=== PATIENT | female | born 1950 | race Hispanic/Latino ===

== ENCOUNTER 2019-04-02 09:12 | Outpatient (CLI) | payer BC ==
--- NOTE | 2019-04-02 09:54 | MMO ---
Bilateral MAMMO Bilat Screen DDI+ANGELICA. CLINICAL HISTORY: Patient is 68 years old and is seen for screening. The patient has no family history of breast cancer. The patient has no personal history of cancer. The patient has a history of right Excisional Biopsy at age 35 - benign - Done in [place]. VIEWS: The views performed were: bilateral craniocaudal; bilateral craniocaudal with tomosynthesis; bilateral mediolateral oblique with tomosynthesis; and bilateral exaggerated craniocaudal. FILMS COMPARED: The present examination has been compared to prior imaging studies performed at [facility] on 02/07/2011 and 03/21/2012. MAMMOGRAM FINDINGS: There are scattered fibroglandular densities. Finding 1: There is a new equal density, oval mass with circumscribed margins seen in the outer region of the left breast. Finding 2: There are stable benign appearing calcifications seen in both breasts. IMPRESSION: FINDING 1: NEW MASS IN THE LEFT BREAST REQUIRES ADDITIONAL EVALUATION. AN ULTRASOUND EXAM IS RECOMMENDED. THE RESULTS OF THIS EXAM WERE SENT TO THE PATIENT. ACR BI-RADS Category 0 - Incomplete: Need additional imaging evaluation. [facility] will notify the patient of the need for additional imaging services. MAMMOGRAPHY NOTE: 1. A negative mammogram report should not delay a biopsy if a dominant of clinically suspicious mass is present. 2. Approximately 10% to 15% of breast cancers are not detected by mammography. 3. Adenosis and dense breasts may obscure an underlying neoplasm. Reported by: SUZI MARIE MD Electonically Signed: [id number]
== END 2019-04-02 09:13 | disposition home or self-care (01) ==
LOC: BICMAMMO 09:12
PROVIDERS: ATTEND Nurse Practitioner Family
DX: Z12.31 Encounter for screening mammogram for malignant neoplasm of breast (principal); N63.20 Unspecified lump in the left breast, unspecified quadrant
CPT/HCPCS: 77063; 77067

== ENCOUNTER 2019-04-15 13:12 | Outpatient (CLI) | payer BC ==
--- NOTE | 2019-04-15 14:28 | MMO ---
Left Breast MAMMO Unilat Diag DDI LT+ANGELICA. CLINICAL HISTORY: Patient is 68 years old and is seen for diagnostic exam. The patient has a history of right Excisional Biopsy at age 35 - benign - Done in [place]. VIEWS: The views performed were: . FILMS COMPARED: The present examination has been compared to prior imaging studies performed at [facility] on 02/07/2011, 03/21/2012, 04/02/2019 and 04/15/2019. MAMMOGRAM FINDINGS: Mass persists on additional views and corresponds to a cyst. There are no suspicious masses, suspicious calcifications, or new areas of architectural distortion. IMPRESSION: THERE IS NO MAMMOGRAPHIC EVIDENCE OF MALIGNANCY. A ROUTINE FOLLOW-UP MAMMOGRAM IN 1 YEAR IS RECOMMENDED. THE RESULTS OF THIS EXAM WERE SENT TO THE PATIENT. ACR BI-RADS Category 2 - Benign finding MAMMOGRAPHY NOTE: 1. A negative mammogram report should not delay a biopsy if a dominant of clinically suspicious mass is present. 2. Approximately 10% to 15% of breast cancers are not detected by mammography. 3. Adenosis and dense breasts may obscure an underlying neoplasm. Reported by: AKIRA CARLTON MD Electonically Signed: [id number]
--- NOTE | 2019-04-15 14:36 | ULT ---
LEFT BREAST ULTRASOUND: 04/15/19 HISTORY: Left breast mass noted on screening mammography. COMPARISON: None. TECHNIQUE: Targeted sonographic images of the left breast is performed. Static images are reviewed. FINDINGS: None. At the 2 o'clock position, there is a well circumscribed anechoic focus measuring 0.8 x 0.7 x 1.1 cm, corresponding to a cyst. Cyst is felt to correspond to mammographic finding. IMPRESSION: BIRADS 2: Benign Finding(s) Routine annual screening mammography (for women over age 40). RECOMMENDATION: Annual mammogram. POS: [facility]
== END 2019-04-15 13:13 | disposition home or self-care (01) ==
LOC: BICMAMMO 13:12
PROVIDERS: ATTEND Nurse Practitioner Family
DX: N63.20 Unspecified lump in the left breast, unspecified quadrant (principal)
CPT/HCPCS: G0279

== ENCOUNTER 2020-09-15 20:52 | Inpatient (IN) | payer BC ==
[2020-09-15 22:45] VITALS: BMI 24.3
[2020-09-15] MEDS ORDERED: Morphine 2 MG/ML VIAL SLOW IVP PRN (23:12)
[2020-09-15] MEDS ORDERED: Promethazine HCl 12.5 MG in Sodium Chloride 0.9% 50 ML IVPB PRN (23:12)
[2020-09-15] MEDS ORDERED: Ondansetron PF 4 MG/2 ML Vial IVP PRN (23:12)
[2020-09-15] MEDS ORDERED: Labetalol HCl 100 MG/20 ML VIAL SLOW IVP PRN (23:12)
[2020-09-15] MEDS ORDERED: Guaifenesin DM 100-10/5 ML UDCUP PO PRN (23:12)
[2020-09-15] MEDS ORDERED: hydrALAZINE 20 MG/ML VIAL SLOW IVP PRN (23:12)
[2020-09-15] MEDS ORDERED: cloNIDine 0.1 MG TAB PO PRN (23:12)
[2020-09-15] MEDS ORDERED: HYDROcodone/Acetaminophen 5/325 mg Tablet PO PRN (23:12)
[2020-09-15] MEDS ORDERED: Electrolyte Replacement Protocol 1 EACH FS SCH (23:15)
[2020-09-15 23:28] LABS: #Lymphocytes 1.1 thou/uL (1.20-3.40); #Monocytes 0.4 thou/uL (0.11-0.59); #Neutrophils 15.1 thou/uL (1.40-6.50); %Basophils 0.1 % (0.0-1.0); %Lymphocytes 6.6 % (21.0-51.0); %Monocytes 2.5 % (0.0-10.0); %Neutrophils 90.7 % (42.0-75.0); Hemoglobin 12.6 g/dL (12.0-16.0); Mean Corpuscular Hemoglobin 29.2 pg (27.0-31.0); Mean Corpuscular Volume 88.3 fL (78.0-98.0); Mean Platelet Volume 7.8 fL (7.4-10.4); Platelet Count 255 thou/uL (130-400); RBC Distribution Width 11.8 % (11.5-14.5); Red Blood Cell (RBC) Count 4.32 mill/uL (4.20-5.40); White Blood Cell (WBC) Count 16.7 thou/uL (4.8-10.8)
[2020-09-15 23:53] LABS: ALT (SGPT) 11 U/L (8-55); AST (SGOT) 13 U/L (5-34); Albumin 3.3 g/dL (3.4-4.8); Alkaline Phosphatase 71 U/L (40-110); Anion Gap 13 mmol/L (10-20); BUN (Urea Nitrogen) 14 mg/dL (9.8-20.1); Bilirubin, Direct 0.5 mg/dL (0.1-0.3); Calc. Creatinine Clearance 77 mL/min (70-130); Calcium 8.2 mg/dL (7.8-10.44); Carbon Dioxide 22 mmol/L (23-31); Chloride 103 mmol/L (98-107); Glucose 158 mg/dL (80-115); Potassium 3.2 mmol/L (3.5-5.1); Protein, Total 6.3 g/dL (6.0-8.3); Sodium 135 mmol/L (136-145)
[2020-09-16] MEDS: Sodium Chloride 0.9% 1,000 ML IV SCH ×3 (00:15→22:54)
[2020-09-16 05:54] LABS: #Lymphocytes 1.2 thou/uL (1.20-3.40); #Monocytes 0.5 thou/uL (0.11-0.59); %Basophils 0.1 % (0.0-1.0); %Eosinophils 0.3 % (0.0-10.0); %Lymphocytes 8.5 % (21.0-51.0); %Monocytes 3.3 % (0.0-10.0); %Neutrophils 87.9 % (42.0-75.0); Hemoglobin 12.1 g/dL (12.0-16.0); Mean Corpuscular HGB CONC 33.4 g/dL (32.0-36.0); Mean Corpuscular Volume 89.7 fL (78.0-98.0); Mean Platelet Volume 8.4 fL (7.4-10.4); Platelet Count 218 thou/uL (130-400); RBC Distribution Width 11.8 % (11.5-14.5); Red Blood Cell (RBC) Count 4.03 mill/uL (4.20-5.40); White Blood Cell (WBC) Count 13.6 thou/uL (4.8-10.8)
[2020-09-16 06:23] LABS: Anion Gap 12 mmol/L (10-20); BUN (Urea Nitrogen) 16 mg/dL (9.8-20.1); Calc. Creatinine Clearance 86 mL/min (70-130); Carbon Dioxide 22 mmol/L (23-31); Chloride 100 mmol/L (98-107); Glucose 88 mg/dL (80-115); Magnesium 1.7 mg/dL (1.6-2.6); Potassium 3.1 mmol/L (3.5-5.1); Sodium 131 mmol/L (136-145)
[2020-09-16 06:25] LABS: Troponin I 0.034 ng/mL (< 0.028)
[2020-09-16] MEDS ORDERED: Magnesium 2 GM/50 ML 2 GM in Premix Bag 1 BAG IVPB SCH (07:45)
[2020-09-16] MEDS ORDERED: Potassium Chloride 20 MEQ TAB PO SCH (07:45)
--- NOTE | 2020-09-16 08:45 | PDOC.HHP ---
Hospitalist HPI - History of Present Illness Abdominal pain History of Present Illness: Ms. Burch is a 69-year-old female with a past medical history of hypertension, hyperlipidemia, chronic ear infections with left ear cholesteatoma surgery, who is extremely hard of hearing who first presented to [place] [facility] for abdominal pain. Patient reported that few days ago she developed urinary symptoms of frequency, foul-smelling urine and today developed abdominal pain and malaise with subjective fevers. She endorses nausea, and mild vomiting. Denies melena, hematochezia. She denies chest pain or shortness of breath. Denies numbness weakness or changes in vision. Patient difficult historian due to her severe hearing deficits and Uzbek-speaking. I was able to communicate by writing Uzbek down for her. Most of history is taken from ER records. Initial vital signs 133/62, 105, 101.9, 94% on room air. EKG showed sinus tachycardia with LVH, LAE with no ischemic changes. Chest x-ray with mild atelectasis due to poor inspiratory effort. H/H 12.1/36.1. WBC 13.6. BUN/CR 14/0.67. Sodium 135, potassium 3.2, glucose 158. AST/ALT 13/11, alk phos 71, T bili 1.0. Troponin slightly elevated at 0.050. Patient received Levaquin, vancomycin, 1 L of normal saline, Tylenol and aspirin at outside hospital. She is transferred to [facility] for further evaluation and management. Hospitalist ROS - Review of Systems Constitutional: reports: fever, weakness, malaise. denies: chills, sweats, other Eyes: denies: pain, vision change, conjunctivae inflammation, eyelid inflammation, redness, other ENT: denies: ear pain, ear discharge, nose pain, nose discharge, nose congestion, mouth pain, mouth swelling, throat pain, throat swelling, other Respiratory: denies: cough, dry, shortness of breath, hemoptysis, SOB with excertion, pleuritic pain, sputum, wheezing, other Cardiovascular: denies: chest pain, palpitations, orthopnea, paroxysmal noc. dyspnea, edema, light headedness, other Gastrointestinal: reports: nausea, abdominal pain. denies: vomiting, diarrhea, constipation, melena, hematochezia, other Genitourinary: reports: dysuria, frequency. denies: incontinence, hematuria, retention, other Musculoskeletal: denies: neck pain, shoulder pain, arm pain, back pain, hand pain, leg pain, foot pain, other Skin: denies: rash, lesions, sabi, bruising, other Neurological: denies: weakness, numbness, incoordination, change in speech, confusion, seizures, other - Medication Medications: Patient unable to tell me her home medications. We will recheck to family to see if they can assist. Patient does report an allergy to penicillin Hospitalist History - Past Medical History Other Medical History: Past medical history includes Hypertension Hyperlipidemia Chronic bilateral ear infections Severe hearing loss - Past Surgical History Other Surgical History: Past surgical history includes Cholecystectomy Left ear cholesteatoma surgery - Family History Other Family History: No pertinent family history - Social History Smoking Status: Never smoker Alcohol: reports: None Drugs: reports: none Living Situation: With Family Activity level: independent ambulation - Exam General Appearance: NAD, awake alert Eye: PERRL, anicteric sclera ENT: normocephalic atraumatic, no oropharyngeal lesions, moist mucosa Neck: supple, symmetric, no JVD, no thyromegaly, no lymphadenopathy, no carotid bruit Heart: no murmur, no gallops, no rubs, normal peripheral pulses Heart - other findings: Tachycardic Respiratory: CTAB, no wheezes, no rales, no ronchi, normal chest expansion, no tachypnea, normal percussion Gastrointestinal: soft, non-distended, normal bowel sounds, no palpable masses, no hepatomegaly, no splenomegaly, no guarding, no rigidity Gastrointestinal - other findings: Mildly tender to palpation over the suprapubic area Extremities: no cyanosis, no clubbing, no edema Skin: normal turgor, no lesions, no rashes Neurological: cranial nerve grossly intact, normal sensation to touch, no weakness, no focal deficits, no new deficit Musculoskeletal: normal tone, normal strength, no muscle wasting Psychiatric: normal affect, normal behavior, A&O x 3 Hospitalist Results - Labs Result Diagrams: 09/18/20 05:02 09/19/20 04:37 Lab results: WBC 13.6 thou/uL (4.8-10.8) H 09/16/20 04:46 Hgb 12.1 g/dL (12.0-16.0) 09/16/20 04:46 Hct 36.1 % (36.0-47.0) 09/16/20 04:46 MCV 89.7 fL (78.0-98.0) 09/16/20 04:46 Plt Count 218 thou/uL (130-400) 09/16/20 04:46 Neutrophils % 87.9 % (42.0-75.0) H 09/16/20 04:46 Sodium 131 mmol/L (136-145) L 09/16/20 04:47 Potassium 3.1 mmol/L (3.5-5.1) L 09/16/20 04:47 Chloride 100 mmol/L (98-107) 09/16/20 04:47 Carbon Dioxide 22 mmol/L (23-31) L 09/16/20 04:47 BUN 16 mg/dL (9.8-20.1) 09/16/20 04:47 Creatinine 0.60 mg/dL (0.6-1.1) 09/16/20 04:47 Glucose 88 mg/dL (80-115) 09/16/20 04:47 Calcium 8.0 mg/dL (7.8-10.44) 09/16/20 04:47 Total Bilirubin 1.0 mg/dL (0.2-1.2) 09/15/20 23:22 AST 13 U/L (5-34) 09/15/20 23:22 ALT 11 U/L (8-55) 09/15/20 23:22 Alkaline Phosphatase 71 U/L (40-110) 09/15/20 23:22 Troponin I 0.034 ng/mL (< 0.028) H 09/16/20 04:47 Serum Total Protein 6.3 g/dL (6.0-8.3) 09/15/20 23:22 Albumin 3.3 g/dL (3.4-4.8) L 09/15/20 23:22 Hospitalist H&P A/P - Plan Plan: Urinary tract infection 69 year-old female past medical history hypertension, hyperlipidemia, chronic ear infections with severe hearing loss presents for urinary symptoms associated with suprapubic pain. UA grossly positive. WBC 13.6. Patient febrile and mildly tachycardic. LFTs within normal limits. No CVA tenderness. Patient received Levaquin, vancomycin at outside hospital. We will continue antibiotics and continue to monitor. Plan Ceftriaxone, vancomycin -Follow urine cx Continue IV fluids, I/Os Continue to monitor Sepsis without septic shock Patient presented with sepsis secondary to urinary tract infection. Patient ta chycardic to 105, febrile to 101.9. WBC 13.6. Lactic acid 1.1. Patient received 1 L of normal saline in emergency room and was started on Levaquin and vancomycin. Blood pressure stable at 133/62. We will draw blood cultures and continue to monitor. Plan IVF, abx Blood cultures Trend fever curve, WBCs Continue treatment plan as above Elevated troponin Troponin mildly elevated at 0.050. Patient without chest pain. EKG showed sinus tachycardia with LVH and LAE but no ST changes. BUN/CR 14/0.67. Likely secondary to demand ischemia in setting of sepsis. We will continue to monitor for symptoms and place on telemetry as well as trend troponins. Plan Trend troponin Telemetry monitoring ASA Hyponatremia Mildly hyponatremic to 135. Will draw urine lytes, osms and serum osms. Continue to trend. Plan -Urine lytes, osm -Serum osms -q8hr Na Abnormal CXR CXR with mild L-sided atelectasis. Likely due to poor inspiratory effort. Low suspicion for PNA since patient denies cough or any respiratory symptoms. Will encourage IS and continue to monitor. COVID pending. Hypokalemia K+ 3.1 on admission. Will replete and continue to monitor. Hypertension History of hypertension. Unable to confirm patient's home medications. Will will hold antihypertensives in setting of sepsis. Will titrate as needed. Hyperlipidemia History of hyperlipidemia, will continue home statin. DVT prophylaxisLovenox Full code Case discussed with attending physician Dr. Montaño.
[2020-09-16] MEDS ORDERED: Vancomycin 1 GM in Premix Bag 1 BAG IVPB SCH (09:15)
[2020-09-16] MEDS ORDERED: Potassium Phosphate 30 MMOL in Sodium Chloride 0.9% 250 ML 250 ML IVPB SCH (09:15)
[2020-09-16] MEDS ORDERED: Pharmacy to Dose - ANTIBIOTICS IVPB SCH (09:30)
[2020-09-16] MEDS: Famotidine 20 MG TAB PO SCH ×2 (09:41→20:33)
[2020-09-16] MEDS: Atorvastatin Calcium 20 MG TAB PO SCH (09:42)
[2020-09-16] MEDS: Polyethylene Glycol 3350 17 GM Packet PO SCH (09:42)
[2020-09-16] MEDS: Vancomycin 1 GM in Premix Bag 1 BAG IVPB SCH ×2 (09:43→22:54)
[2020-09-16 10:25] LABS: SARS-CoV-2 MS2 Positive; SARS-CoV-2 N Gene Positive; SARS-CoV-2 S Gene Positive; SARS-CoV-2 by NAA DETECTED (NotDetected); SARS-CoV-2 orf1ab Positive
--- NOTE | 2020-09-16 10:28 | RAD ---
ABDOMEN 1 VIEW: HISTORY: Abdominal pain. COMPARISON: None. FINDINGS: Mildly distended loops of large and small bowel throughout the abdomen without overt dilatation. No air fluid levels, although an upright view would be necessary to evaluate this. The right hemidiaphr agm was not evaluated. No abnormal calcifications project over the renal shadows. Low-grade dextroscoliosis of the lumbar s pine. IMPRESSION: No evidence of bowel obstruction. POS: HOME
[2020-09-16] MEDS: cefTRIAXone\\ROCEPHIN 1 GM in Sodium Chloride 0.9% 100 ML IVPB SCH (11:00)
[2020-09-16] MEDS ORDERED: REMDESIVIR (EUA) 200 MG in Sodium Chloride 0.9% 250 ML 210 ML IV SCH (12:15)
--- NOTE | 2020-09-16 12:15 | RAD ---
EXAM: CHEST ONE VIEW HISTORY: Shortness of breath. COMPARISON: 09/15/2020 FINDINGS: Again noted is elevation of the right hemidiaphragm with atelectasis present at the right lung base. Left lung is clear. Cardiac silhouette is magnified by projection but stable in size. Prominence of the right paramediastinal structures, but this is felt to be related to depth of inspiration. No sign ificant interval change from prior study. IMPRESSION: Persistent elevation right hemidiaphragm with volume loss right lung base. Chest is stable compared t o prior exam.
[2020-09-16] MEDS: Acetaminophen 325 MG TAB PO PRN ×2 (14:17→20:31)
[2020-09-16 14:23] LABS: Sodium 131 mmol/L (136-145)
[2020-09-16 14:56] LABS: Legionella Urinary Ag Negative (Negative)
[2020-09-16 14:57] LABS: Strep pneumo Urine Ag NEGATIVE (NEGATIVE)
[2020-09-16 14:58] LABS: Bilirubin Negative (Negative); Blood, Urine 1+ (Negative); Clarity Turbid (Clear); Glucose, Urine (Dipstick) 50 mg/dL (Negative); Ketone, Urine Negative (Negative); Leukocyte 500 Leu/uL (Negative); Nitrite Negative (Negative); Protein, Urine (Dipstick) Negative (Neg-Trace); Specific Gravity, Urine 1.016 (1.002-1.036); Squamous Epithelial 0-3 HPF (0-3); Urobilinogen Normal mg/dL (Less than 2); WBC/HPF Greater than 50 HPF (0-3)
[2020-09-16 15:15] LABS: Bacteria/HPF 1+ HPF (None Seen)
[2020-09-16 15:16] LABS: Urine Culture Reflex Yes Yes
[2020-09-16 16:21] LABS: Potassium, Urine 43.5 mmol/L
[2020-09-16] MEDS: Enoxaparin Sodium 40 MG/0.4 ML SYRINGE SC SCH (20:31)
[2020-09-16] MEDS ORDERED: REMDESIVIR (EUA) 100 MG in Sodium Chloride 0.9% 250 ML 230 ML IV SCH (22:00)
[2020-09-16 22:41] LABS: Sodium 132 mmol/L (136-145)
[2020-09-17 05:07] LABS: #Eosinphils 0.1 thou/uL (0.0-0.7); #Monocytes 0.5 thou/uL (0.11-0.59); #Neutrophils 9.8 thou/uL (1.40-6.50); %Basophils 0.2 % (0.0-1.0); %Eosinophils 0.8 % (0.0-10.0); %Lymphocytes 8.9 % (21.0-51.0); %Monocytes 4.1 % (0.0-10.0); Hemoglobin 11.4 g/dL (12.0-16.0); Mean Corpuscular Hemoglobin 28.3 pg (27.0-31.0); Mean Corpuscular Volume 88.5 fL (78.0-98.0); Platelet Count 227 thou/uL (130-400); RBC Distribution Width 11.8 % (11.5-14.5); Red Blood Cell (RBC) Count 4.04 mill/uL (4.20-5.40); White Blood Cell (WBC) Count 11.4 thou/uL (4.8-10.8)
[2020-09-17 05:28] LABS: Anion Gap 13 mmol/L (10-20); BUN (Urea Nitrogen) 8 mg/dL (9.8-20.1); Calc. Creatinine Clearance 87 mL/min (70-130); Calcium 7.9 mg/dL (7.8-10.44); Carbon Dioxide 22 mmol/L (23-31); Chloride 103 mmol/L (98-107); Glucose 107 mg/dL (80-115); Potassium 3.6 mmol/L (3.5-5.1); Sodium 134 mmol/L (136-145)
[2020-09-17] MEDS ORDERED: Magnesium 2 GM/50 ML 2 GM in Premix Bag 1 BAG IVPB SCH (06:30)
[2020-09-17 09:10] LABS: Vancomycin, Trough 9.3 ug/mL
[2020-09-17] MEDS: Sodium Chloride 0.9% 1,000 ML IV SCH ×2 (10:11→17:23)
[2020-09-17] MEDS: Aspirin 81 mg Enteric Coated Tablet PO SCH (10:12)
[2020-09-17] MEDS: Famotidine 20 MG TAB PO SCH (10:12)
[2020-09-17] MEDS: Atorvastatin Calcium 20 MG TAB PO SCH (10:12)
[2020-09-17] MEDS: Vancomycin 1 GM in Premix Bag 1 BAG IVPB SCH (10:12)
[2020-09-17] MEDS: Polyethylene Glycol 3350 17 GM Packet PO SCH (10:13)
[2020-09-17] MEDS: cefTRIAXone\\ROCEPHIN 1 GM in Sodium Chloride 0.9% 100 ML IVPB SCH (10:17)
[2020-09-17] MEDS ORDERED: Vancomycin 1 GM in Premix Bag 1 BAG IVPB SCH (18:00)
--- NOTE | 2020-09-17 19:38 | PDOC.HOSPP ---
- Subjective Encounter Date: 09/17/20 Encounter Time: 18:00 Subjective: Patient seen and examined for sepsis. Denies any new complaints. Mild nausea earlier. Denies significant abdominal pain. No bowel movement. No chest pain or palpitation - Objective Vital Signs & Weight: Vital Signs (12 hours) Temp Pulse Resp BP BP Pulse Ox 09/17/20 16:10 99.9 F H 87 27 H 144/67 H 96 09/17/20 11:54 98.3 F 95 20 158/67 H 96 09/17/20 11:05 95 09/17/20 08:00 99.3 F 96 24 H 151/68 H 95 Weight Admit Weight 137 lb 4.8 oz Weight 137 lb 4.8 oz I&O: 09/16/20 09/17/20 09/18/20 06:59 06:59 06:59 Intake Total 1370 1200 2160 Output Total 700 1300 Balance 670 -100 2160 Result Diagrams: 09/17/20 04:33 09/17/20 04:33 Additional Labs: Abnormal Lab Results - Last 48 hrs 09/15/20 00:00: SARS-CoV-2 (PCR) DETECTED A* 09/15/20 23:22: Sodium 135 L, Potassium 3.2 L, Carbon Dioxide 22 L, Direct Bilirubin 0.5 H, Albumin 3.3 L 09/15/20 23:22: WBC 16.7 H, Neutrophils % 90.7 H, Lymphocytes % 6.6 L, Neutrophils # 15.1 H, Lymphocytes # 1.1 L 09/15/20 23:22: Troponin I 0.050 H 09/16/20 04:46: WBC 13.6 H, RBC 4.03 L, Neutrophils % 87.9 H, Lymphocytes % 8.5 L, Neutrophils # 12.0 H 09/16/20 04:47: Sodium 131 L, Potassium 3.1 L, Carbon Dioxide 22 L 09/16/20 04:47: Troponin I 0.034 H 09/16/20 09:33: Serum Osmolality 272 L 09/16/20 11:58: C-Reactive Protein 21.07 H 09/16/20 11:58: ESR Westergren 58 H 09/16/20 13:54: Sodium 131 L 09/16/20 14:00: Urine Clarity Turbid A, Urine Blood 1+ A, Ur Leukocyte Esterase 500 A, Urine RBC 11-20 A, Urine WBC Greater than 50 A, Urine Bacteria 1+ A, Urine Culture Reflexed Yes A 09/16/20 22:20: Sodium 132 L 09/17/20 04:33: Sodium 134 L, Carbon Dioxide 22 L, BUN 8 L, Creatinine 0.59 L 09/17/20 04:33: WBC 11.4 H, RBC 4.04 L, Hgb 11.4 L, Hct 35.8 L, Neutrophils % 86.0 H, Lymphocytes % 8.9 L, Neutrophils # 9.8 H, Lymphocytes # 1.0 L Microbiology - Entire Visit 09/16/20 00:00 Nasopharyngeal swab Respiratory Virus Panel (PCR) - Final 09/16/20 15:15 Urine clean catch Urine Culture - Preliminary NO GROWTH AT 24 HOURS Radiology Reviewed by me: Yes (Chest x-rayno edema or significant infiltrate) EKG Reviewed by me: Yes (Sinus rhythm on telemetry, PAT earlier) Hospitalist ROS - Review of Systems Cardiovascular: denies: chest pain, palpitations, orthopnea, paroxysmal noc. dyspnea, edema, light headedness, other Gastrointestinal: reports: nausea. denies: vomiting, abdominal pain, diarrhea, constipation, melena, hematochezia, other - Medication Medications: Active Medications Generic Name Dose Route Start Last Admin Trade Name Philq PRN Reason Stop Dose Admin Acetaminophen 650 mg 09/15/20 23:12 09/16/20 20:31 Acetaminophen 325 Mg Tab PO 650 mg Q4H PRN Administration Headache/Fever/Mild Pain (1-3) Aspirin 81 mg 09/17/20 09:00 09/17/20 10:12 Aspirin 81 Mg Enteric Coated Tablet PO 81 mg DAILY DASHAWN Administration Atorvastatin Calcium 20 mg 09/16/20 09:00 09/17/20 10:12 Atorvastatin Calcium 20 Mg Tab PO 20 mg DAILY DASHAWN Administration Enoxaparin Sodium 40 mg 09/16/20 21:00 09/16/20 20:31 Enoxaparin Sodium 40 Mg/0.4 Ml Syringe SC 40 mg 2100 DASHAWN Administration Famotidine 20 mg 09/16/20 09:00 09/17/20 10:12 Famotidine 20 Mg Tab PO 20 mg BID DASHAWN Administration Sodium Chloride 1,000 mls @ 100 mls/hr 09/15/20 23:15 09/17/20 17:23 Normal Saline 0.9% IV 1,000 mls .Q10H DASHAWN Administration Ceftriaxone Sodium 1 gm/ 100 mls @ 200 mls/hr 09/16/20 09:00 09/17/20 10:17 Sodium Chloride IVPB 100 mls Q24HR DASHAWN Administration Vancomycin HCl 1 gm/ Device 200 mls @ 200 mls/hr 09/17/20 18:00 09/17/20 17:23 IVPB 200 mls 0200,1000,1800 DASHAWN Administration Ondansetron HCl 4 mg 09/15/20 23:12 09/17/20 13:07 Ondansetron Pf 4 Mg/2 Ml Vial IVP 4 mg Q6H PRN Administration Nausea/Vomiting use 1st Polyethylene Glycol 17 gm 09/16/20 09:00 09/17/20 10:13 Polyethylene Glycol 3350 17 Gm Packet PO 17 gm DAILY DASHAWN Administration Sodium Chloride 10 ml 09/16/20 09:00 09/17/20 10:13 Flush - Normal Saline 10 Ml Syringe IVF 10 ml Q12HR DASHAWN Administration - Exam General Appearance: awake alert Heart: RRR, no gallops, no rubs, normal peripheral pulses Respiratory: no wheezes, no rales, normal chest expansion, rhonchi Gastrointestinal: soft, normal bowel sounds, no guarding, no rigidity Extremities: no cyanosis, no clubbing, no edema Neurological: no new deficit Musculoskeletal: generalized weakness Psychiatric: normal affect, A&O x 3 Hosp A/P - Plan DVT proph w/SCDs 69-year-old female with hypertension and hyperlipidemia presented on 09/15 with abdominal discomfort along with chills. Her work-up was consistent with sepsis due to UTI. A Covid testing also came back positive. Impression: Sepsis due to UTI/COVID-19 infectionPOA Abdominal painmultifactorialimproving Dehydration with hyponatremia Hypokalemia/hypomagnesemia Hypertension Hyperlipidemia Penicillin allergy Hard of hearing PAT on telemetry Plan: Continue ceftriaxone. Will discontinue vancomycin continue IV hydration. Replace electrolytes. Add metoprolol for SVT. Continue Lovenox for DVT prophylaxis. Continue other medications as above
[2020-09-17] MEDS: Metoprolol Tartrate 25 MG TAB PO SCH (20:45)
[2020-09-17] MEDS: Enoxaparin Sodium 40 MG/0.4 ML SYRINGE SC SCH (20:45)
[2020-09-17] MEDS: Senokot S 8.6-50 MG TAB PO SCH (20:46)
[2020-09-18] MEDS: Sodium Chloride 0.9% 1,000 ML IV SCH (01:47)
[2020-09-18 06:01] LABS: #Eosinphils 0.2 thou/uL (0.0-0.7); #Lymphocytes 1.2 thou/uL (1.20-3.40); #Monocytes 0.5 thou/uL (0.11-0.59); #Neutrophils 7.9 thou/uL (1.40-6.50); %Basophils 0.3 % (0.0-1.0); %Eosinophils 1.8 % (0.0-10.0); %Lymphocytes 12.2 % (21.0-51.0); %Monocytes 5.2 % (0.0-10.0); %Neutrophils 80.4 % (42.0-75.0); Mean Corpuscular Hemoglobin 29.4 pg (27.0-31.0); Platelet Count 247 thou/uL (130-400); RBC Distribution Width 11.7 % (11.5-14.5); Red Blood Cell (RBC) Count 3.74 mill/uL (4.20-5.40); White Blood Cell (WBC) Count 9.8 thou/uL (4.8-10.8)
[2020-09-18 06:07] LABS: Phosphorus 2.6 mg/dL (2.3-4.7)
[2020-09-18 06:11] LABS: ALT (SGPT) 15 U/L (8-55); AST (SGOT) 14 U/L (5-34); Alkaline Phosphatase 66 U/L (40-110); Anion Gap 11 mmol/L (10-20); BUN (Urea Nitrogen) 6 mg/dL (9.8-20.1); Bilirubin, Total 0.5 mg/dL (0.2-1.2); Calc. Creatinine Clearance 92 mL/min (70-130); Calcium 7.6 mg/dL (7.8-10.44); Carbon Dioxide 23 mmol/L (23-31); Chloride 102 mmol/L (98-107); Globulin 2.7 g/dL (2.4-3.5); Glucose 97 mg/dL (80-115); Magnesium 2.1 mg/dL (1.6-2.6); Potassium 3.8 mmol/L (3.5-5.1); Protein, Total 5.7 g/dL (6.0-8.3); Sodium 132 mmol/L (136-145)
[2020-09-18] MEDS: Senokot S 8.6-50 MG TAB PO SCH ×2 (08:43→20:24)
[2020-09-18] MEDS: Aspirin 81 mg Enteric Coated Tablet PO SCH (08:43)
[2020-09-18] MEDS: Atorvastatin Calcium 20 MG TAB PO SCH (08:43)
[2020-09-18] MEDS: Metoprolol Tartrate 25 MG TAB PO SCH ×2 (08:43→20:24)
[2020-09-18] MEDS: Saccharomyces boulardii 250 MG CAP PO SCH (08:43)
[2020-09-18] MEDS: Polyethylene Glycol 3350 17 GM Packet PO SCH (08:44)
[2020-09-18] MEDS: cefTRIAXone\\ROCEPHIN 1 GM in Sodium Chloride 0.9% 100 ML IVPB SCH (08:45)
--- NOTE | 2020-09-18 16:59 | PDOC.HOSPP ---
- Subjective Encounter Date: 09/18/20 Encounter Time: 12:30 Subjective: Patient seen and examined for sepsis. Feeling better. Denies any fever, chills, chest pain, palpitations, nausea or vomiting. No overnight events. - Objective Vital Signs & Weight: Vital Signs (12 hours) Temp Pulse Resp BP Pulse Ox 09/18/20 15:56 98.2 F 73 18 131/60 97 09/18/20 12:00 98.6 F 69 18 169/105 H 95 09/18/20 07:25 96 09/18/20 07:22 98.2 F 74 24 H 148/67 H 96 Weight Admit Weight 137 lb 4.8 oz Weight 137 lb 4.8 oz I&O: 09/17/20 09/18/20 09/19/20 06:59 06:59 06:59 Intake Total 1200 2160 Output Total 1300 Balance -100 2160 Result Diagrams: 09/18/20 05:02 09/18/20 05:02 Additional Labs: Abnormal Lab Results - Last 48 hrs 09/16/20 22:20: Sodium 132 L 09/17/20 04:33: Sodium 134 L, Carbon Dioxide 22 L, BUN 8 L, Creatinine 0.59 L 09/17/20 04:33: WBC 11.4 H, RBC 4.04 L, Hgb 11.4 L, Hct 35.8 L, Neutrophils % 86.0 H, Lymphocytes % 8.9 L, Neutrophils # 9.8 H, Lymphocytes # 1.0 L 09/18/20 05:02: Sodium 132 L, BUN 6 L, Creatinine 0.56 L, Calcium 7.6 L, Serum Total Protein 5.7 L, Albumin 3.0 L, Albumin/Globulin Ratio 1.1 L 09/18/20 05:02: RBC 3.74 L, Hgb 11.0 L, Hct 33.3 L, Neutrophils % 80.4 H, Lymphocytes % 12.2 L, Neutrophils # 7.9 H 09/18/20 05:02: D-Dimer 3.91 H Microbiology - Entire Visit 09/16/20 15:15 Urine clean catch Urine Culture - Final NO GROWTH AT 48 HOURS 09/16/20 00:00 Nasopharyngeal swab Respiratory Virus Panel (PCR) - Final Radiology Reviewed by me: Yes (Chest x-ray reviewed) EKG Reviewed by me: Yes (Sinus rhythm on telemetry) Hospitalist ROS - Review of Systems Cardiovascular: denies: chest pain, palpitations, orthopnea, paroxysmal noc. dyspnea, edema, light headedness, other Gastrointestinal: denies: nausea, vomiting, abdominal pain, diarrhea, constipation, melena, hematochezia, other - Medication Medications: Active Medications Generic Name Dose Route Start Last Admin Trade Name Freq PRN Reason Stop Dose Admin Acetaminophen 650 mg 09/15/20 23:12 09/16/20 20:31 Acetaminophen 325 Mg Tab PO 650 mg Q4H PRN Administration Headache/Fever/Mild Pain (1-3) Aspirin 81 mg 09/17/20 09:00 09/18/20 08:43 Aspirin 81 Mg Enteric Coated Tablet PO 81 mg DAILY DASHAWN Administration Atorvastatin Calcium 20 mg 09/16/20 09:00 09/18/20 08:43 Atorvastatin Calcium 20 Mg Tab PO 20 mg DAILY DASHAWN Administration Enoxaparin Sodium 40 mg 09/16/20 21:00 09/17/20 20:45 Enoxaparin Sodium 40 Mg/0.4 Ml Syringe SC 40 mg 2100 DASHAWN Administration Ceftriaxone Sodium 1 gm/ 100 mls @ 200 mls/hr 09/16/20 09:00 09/18/20 08:45 Sodium Chloride IVPB 100 mls Q24HR DASHAWN Administration Metoprolol Tartrate 25 mg 09/17/20 21:00 09/18/20 08:43 Metoprolol Tartrate 25 Mg Tab PO 25 mg BID DASHAWN Administration Ondansetron HCl 4 mg 09/15/20 23:12 09/17/20 13:07 Ondansetron Pf 4 Mg/2 Ml Vial IVP 4 mg Q6H PRN Administration Nausea/Vomiting use 1st Pantoprazole Sodium 40 mg 09/18/20 09:00 09/18/20 08:44 Pantoprazole 40 Mg Tab PO 40 mg DAILY DASHAWN Administration Polyethylene Glycol 17 gm 09/16/20 09:00 09/18/20 08:44 Polyethylene Glycol 3350 17 Gm Packet PO 17 gm DAILY DASHAWN Administration Saccharomyces Boulardii 250 mg 09/18/20 09:00 09/18/20 08:43 Saccharomyces Boulardii 250 Mg Cap PO 250 mg DAILY DASHAWN Administration Senna/Docusate Sodium 2 tab 09/17/20 21:00 09/18/20 08:43 Senokot S 8.6-50 Mg Tab PO 2 tab BID DASHAWN Administration Sodium Chloride 10 ml 09/16/20 09:00 09/18/20 08:45 Flush - Normal Saline 10 Ml Syringe IVF 10 ml Q12HR DASHAWN Administration - Exam General Appearance: awake alert Neck: supple, no JVD Heart: RRR, no gallops Respiratory: no wheezes, no ronchi Gastrointestinal: soft, non-tender, normal bowel sounds Extremities: no cyanosis Neurological: no new deficit Hosp A/P - Plan DVT proph w/SCDs 69-year-old female with hypertension and hyperlipidemia presented on 09/15 with abdominal discomfort along with chills. Her work-up was consistent with sepsis due to UTI. A Covid testing also came back positive. Impression: Sepsis due to UTI/COVID-19 infection Abdominal painmultifactorialimproving Dehydration with hyponatremia Hypokalemia/hypomagnesemia SVT Hypertension Hyperlipidemia Penicillin allergy Hard of hearing PAT on telemetry Plan: Vital signs remained stable. Patient is afebrile over the last 12 hours with a T-max of 99.9. This could probably be due to COVID-19 as well. Will discontinue IV fluids. Will transfer patient to medical. Continue IV ceftriaxone. Continue metoprolol with Lipitor and other medications as above. Family was updated today. Continue other medications as above
[2020-09-18] MEDS: Enoxaparin Sodium 40 MG/0.4 ML SYRINGE SC SCH (20:23)
[2020-09-19 05:36] LABS: ALT (SGPT) 14 U/L (8-55); AST (SGOT) 12 U/L (5-34); Albumin 2.9 g/dL (3.4-4.8); Alkaline Phosphatase 63 U/L (40-110); Anion Gap 12 mmol/L (10-20); BUN (Urea Nitrogen) 9 mg/dL (9.8-20.1); Bilirubin, Total 0.4 mg/dL (0.2-1.2); Calc. Creatinine Clearance 99 mL/min (70-130); Calcium 7.8 mg/dL (7.8-10.44); Carbon Dioxide 25 mmol/L (23-31); Chloride 99 mmol/L (98-107); Globulin 2.7 g/dL (2.4-3.5); Glucose 92 mg/dL (80-115); Potassium 3.8 mmol/L (3.5-5.1); Protein, Total 5.6 g/dL (6.0-8.3); Sodium 132 mmol/L (136-145)
[2020-09-19] MEDS: Saccharomyces boulardii 250 MG CAP PO SCH (09:57)
[2020-09-19] MEDS: cefTRIAXone\\ROCEPHIN 1 GM in Sodium Chloride 0.9% 100 ML IVPB SCH (09:57)
[2020-09-19] MEDS: Senokot S 8.6-50 MG TAB PO SCH ×2 (09:57→20:42)
[2020-09-19] MEDS: Polyethylene Glycol 3350 17 GM Packet PO SCH (09:57)
[2020-09-19] MEDS: Atorvastatin Calcium 20 MG TAB PO SCH (09:57)
[2020-09-19] MEDS: Aspirin 81 mg Enteric Coated Tablet PO SCH (09:57)
[2020-09-19] MEDS: Metoprolol Tartrate 25 MG TAB PO SCH ×2 (09:58→20:42)
[2020-09-19] MEDS: Zinc Sulfate 220 MG CAP PO SCH (09:59)
[2020-09-19] MEDS: Ascorbic Acid 500 mg Chewable Tablet PO SCH (09:59)
--- NOTE | 2020-09-19 17:29 | PDOC.HOSPP ---
- Subjective Encounter Date: 09/19/20 Encounter Time: 15:00 Subjective: Patient seen and examined for sepsis. Symptomatically feeling better. Denies any cough, shortness of breath or wheezing. No nausea, vomiting or abdominal pain reported. - Objective Vital Signs & Weight: Vital Signs (12 hours) Temp Pulse Resp BP BP BP Pulse Ox 09/19/20 15:45 98.6 F 83 18 169/77 H 98 09/19/20 14:25 167/92 H 09/19/20 14:17 186/98 H 166/90 H 09/19/20 12:00 98.2 F 24 H 173/74 H 97 09/19/20 10:15 99.1 F 75 18 156/67 H 97 09/19/20 05:57 98.4 F 86 18 142/80 H 94 L Weight Admit Weight 137 lb 4.8 oz Weight 137 lb 4.8 oz I&O: 09/18/20 09/19/20 09/20/20 06:59 06:59 06:59 Intake Total 2160 960 Balance 2160 960 Result Diagrams: 09/18/20 05:02 09/19/20 04:37 Additional Labs: Abnormal Lab Results - Last 48 hrs 09/18/20 05:02: Sodium 132 L, BUN 6 L, Creatinine 0.56 L, Calcium 7.6 L, Serum Total Protein 5.7 L, Albumin 3.0 L, Albumin/Globulin Ratio 1.1 L 09/18/20 05:02: RBC 3.74 L, Hgb 11.0 L, Hct 33.3 L, Neutrophils % 80.4 H, Lymph ocytes % 12.2 L, Neutrophils # 7.9 H 09/18/20 05:02: D-Dimer 3.91 H 09/19/20 04:37: Sodium 132 L, BUN 9 L, Creatinine 0.52 L, Serum Total Protein 5.6 L, Albumin 2.9 L, Albumin/Globulin Ratio 1.1 L Microbiology - Entire Visit 09/16/20 15:15 Urine clean catch Urine Culture - Final NO GROWTH AT 48 HOURS 09/16/20 00:00 Nasopharyngeal swab Respiratory Virus Panel (PCR) - Final EKG Reviewed by me: Yes (Sinus rhythm on telemetry) Hospitalist ROS - Review of Systems Cardiovascular: denies: chest pain, palpitations, orthopnea, paroxysmal noc. dyspnea, edema, light headedness, other Gastrointestinal: denies: nausea, vomiting, abdominal pain, diarrhea, constipation, melena, hematochezia, other - Medication Medications: Active Medications Generic Name Dose Route Start Last Admin Trade Name Freq PRN Reason Stop Dose Admin Acetaminophen 650 mg 09/15/20 23:12 09/16/20 20:31 Acetaminophen 325 Mg Tab PO 650 mg Q4H PRN Administration Headache/Fever/Mild Pain (1-3) Ascorbic Acid 1,000 mg 09/19/20 09:00 09/19/20 09:59 Ascorbic Acid 500 Mg Chewable Tablet PO 1,000 mg DAILY DASHAWN Administration Aspirin 81 mg 09/17/20 09:00 09/19/20 09:57 Aspirin 81 Mg Enteric Coated Tablet PO 81 mg DAILY DASHAWN Administration Atorvastatin Calcium 20 mg 09/16/20 09:00 09/19/20 09:57 Atorvastatin Calcium 20 Mg Tab PO 20 mg DAILY DASHAWN Administration Enoxaparin Sodium 40 mg 09/16/20 21:00 09/18/20 20:23 Enoxaparin Sodium 40 Mg/0.4 Ml Syringe SC 40 mg 2100 DASHAWN Administration Ceftriaxone Sodium 1 gm/ 100 mls @ 200 mls/hr 09/16/20 09:00 09/19/20 09:57 Sodium Chloride IVPB 100 mls Q24HR DASHAWN Administration Metoprolol Tartrate 25 mg 09/17/20 21:00 09/19/20 09:58 Metoprolol Tartrate 25 Mg Tab PO 25 mg BID DASHAWN Administration Ondansetron HCl 4 mg 09/15/20 23:12 09/17/20 13:07 Ondansetron Pf 4 Mg/2 Ml Vial IVP 4 mg Q6H PRN Administration Nausea/Vomiting use 1st Pantoprazole Sodium 40 mg 09/18/20 09:00 09/19/20 09:58 Pantoprazole 40 Mg Tab PO 40 mg DAILY DASHAWN Administration Polyethylene Glycol 17 gm 09/16/20 09:00 09/19/20 09:57 Polyethylene Glycol 3350 17 Gm Packet PO 17 gm DAILY DASHAWN Administration Saccharomyces Boulardii 250 mg 09/18/20 09:00 09/19/20 09:57 Saccharomyces Boulardii 250 Mg Cap PO 250 mg DAILY DASHAWN Administration Senna/Docusate Sodium 2 tab 09/17/20 21:00 01/17/21 09:57 Senokot S 8.6-50 Mg Tab PO 2 tab BID DASHAWN Administration Sodium Chloride 10 ml 09/16/20 09:00 09/19/20 09:57 Flush - Normal Saline 10 Ml Syringe IVF 10 ml Q12HR DASHAWN Administration Zinc Sulfate 220 mg 09/19/20 09:00 09/19/20 09:59 Zinc Sulfate 220 Mg Cap PO 220 mg DAILY DASHAWN Administration - Exam General Appearance: NAD Heart: RRR, no gallops Respiratory: no wheezes, no ronchi Gastrointestinal: soft, non-tender, normal bowel sounds Extremities: no cyanosis, no clubbing Neurological: no new deficit Psychiatric: A&O x 3 Hosp A/P - Plan DVT proph w/SCDs 69-year-old female with hypertension and hyperlipidemia presented on 09/15 with abdominal discomfort along with chills. Her work-up was consistent with sepsis due to UTI. A Covid testing also came back positive. Impression: Sepsis due to UTI/COVID-19 infection Abdominal painmultifactorialimproving Dehydration with hyponatremia Hypokalemia/hypomagnesemia SVT Hypertension Hyperlipidemia Penicillin allergy Hard of hearing PAT on telemetry Plan: Blood pressure in 160s to 170s. Afebrile. WBC count is back to normal. Urine cultures negative. Chest and abdominal x-ray reviewed. We will continue ceftriaxone. DC home after a.m. dose of ceftriaxone. Add amlodipine with lisinopril due to elevated blood pressure. DC in a.m. if stable
[2020-09-19] MEDS ORDERED: Amlodipine 5 MG TAB PO SCH ×2 (21:00)
[2020-09-20] MEDS: Saccharomyces boulardii 250 MG CAP PO SCH (08:13)
[2020-09-20] MEDS: Zinc Sulfate 220 MG CAP PO SCH (08:13)
[2020-09-20] MEDS: Senokot S 8.6-50 MG TAB PO SCH (08:13)
[2020-09-20] MEDS: Metoprolol Tartrate 25 MG TAB PO SCH (08:13)
[2020-09-20] MEDS: Aspirin 81 mg Enteric Coated Tablet PO SCH (08:13)
[2020-09-20] MEDS: Atorvastatin Calcium 20 MG TAB PO SCH (08:14)
[2020-09-20] MEDS: Ascorbic Acid 500 mg Chewable Tablet PO SCH (08:14)
[2020-09-20] MEDS: Polyethylene Glycol 3350 17 GM Packet PO SCH (08:14)
[2020-09-20] MEDS: cefTRIAXone\\ROCEPHIN 1 GM in Sodium Chloride 0.9% 100 ML IVPB SCH (08:20)
[2020-09-20] MEDS ORDERED: Lisinopril/Hydrochlorothiazide 10 mg/12.5 mg Tablet PO SCH (09:00)
[2020-09-20] MEDS ORDERED: Hydrochlorothiazide 25 MG TAB PO SCH (09:00)
[2020-09-20 11:30] VITALS: BP 141/68; TEMP 98.9
--- NOTE | 2020-09-20 23:18 | PDOC.DS.DS ---
Provider - Provider Date of Admission: 09/15/20 21:45 Date of Discharge: 09/20/20 Admitting Provider: Jori Marti MD Primary Care Physician: Ar Srinivasan MD Course - Hospital Course Hospital Course: 69-year-old female with hypertension and hyperlipidemia presented on 09/15 with abdominal discomfort along with chills. Her work-up was consistent with sepsis due to UTI. Covid testing also came back positive. Please refer to the history and physical for further details. The patient was admitted to the hospital with the above diagnosis. She was placed on IV antibiotics with good improvement in the white blood cell counts. White blood cell count on admission was 16.7 and at discharge is 9.8. Urinalysis showed > 50 WBCs with 1+ bacteria. However urine culture did not show any organism at 48 hours. Primary CARE physician advice to follow up on the final urine cultures. A chest x-ray was negative for infiltrate. Abdominal x-ray was negative for acute findings. She remained on room air throughout the hospital stay. Due to elevated blood pressure she was started on metoprolol. She appears stable for discharge and understands the above plan of care. Final diagnosis: Sepsis due to UTI/COVID-19 infection Abdominal painmultifactorial Dehydration with hyponatremia Hypokalemia/hypomagnesemia SVT Hypertension Hyperlipidemia Penicillin allergy Hard of hearing PAT on telemetry Resuscitation Status: 09/15/20 23:05 Resuscitation Status Routine Resuscitation Status: FULL: Full Resuscitation - Labs Lab Results: 09/18/20 05:02 09/19/20 04:37 Abnormal Lab Results - Last 48 hrs 09/19/20 04:37: Sodium 132 L, BUN 9 L, Creatinine 0.52 L, Serum Total Protein 5.6 L, Albumin 2.9 L, Albumin/Globulin Ratio 1.1 L Microbiology - Entire Visit 09/16/20 15:15 Urine clean catch Urine Culture - Final NO GROWTH AT 48 HOURS 09/16/20 00:00 Nasopharyngeal swab Respiratory Virus Panel (PCR) - Final - Physical Exam Vitals: Vital Signs (12 hours) Temp Pulse Resp BP Pulse Ox 09/20/20 11:28 98.9 F 97 16 141/68 H 96 Weight Admit Weight 137 lb 4.8 oz Weight 137 lb 4.8 oz Physical Exam: The patient was seen and examined on the day of discharge. Plan - Discharge Medications Prescriptions: Metoprolol Tartrate [Lopressor] 25 mg PO BID #60 tab Cefdinir [Omnicef] 300 mg PO BID #7 cap Home Medications: Medication Instructions Recorded Confirmed Type Atorvastatin Calcium [Lipitor] 20 mg PO DAILY 09/15/20 09/15/20 History Hydrochlorothiazide 25 mg PO DAILY 09/15/20 09/15/20 History Aspirin [Ecotrin Low Strength] 81 mg PO DAILY tab 09/20/20 Rx Cefdinir [Omnicef] 300 mg PO BID #7 cap 09/20/20 Rx Metoprolol Tartrate [Lopressor] 25 mg PO BID #60 tab 09/20/20 Rx Allergies: Penicillins Allergy (Verified 09/15/20 22:39) - Discharge Instructions Discharge Instructions:: BMP after 1 weekPCP to arrange and follow 1 Banana daily due to low Potassium - Follow up Plan Referrals: Adonay Cordova MD [Active] - 7 Days Ar Srinivasan MD [Primary Care Provider] - 7 Days Disposition: HOME Quality - Care Measures CORE MEASURES:: N/A
--- NOTE | 2020-09-23 04:14 | PQF ---
CLINICAL DOCUMENTATION CLARIFICATION FORM: Dear : Lamont Armstrong Date / Time: 09/23/20412 Please exercise your independent, professional judgment in responding to the clarification form. Clinical indicators are provided on the bottom of this form for your review Please check appropriate box(es) to clarify if the following diagnosis has been ruled in our ruled out: Demand Ischemia [ x ] Ruled in diagnosis [ ] Continue to treat [ x ] Resolved [ ] Ruled out diagnosis [ ] Improving [ ] Cannot rule out diagnosis [ ] Other diagnosis, please specify [ ] Unable to determine Physician Signature: Date/Time: For continuity of documentation, please document condition throughout progress notes and discharge summary. Thank You. To be completed by CDI/Coding staff for physician review: Present Clinical Indicators - Signs / Symptoms / Labs Results and Location in Medical Record [x] Troponin 0.050; 0.034; 0.023 Laboratory 09/15-09/16 [x] BP 143/64, Pulse 97, Resp 18, Temp 98.0 Vital signs [x] Troponin Mildly elevated at 0.050. Likley secondary to demand ischemia in setting of sepsis H&P p5 09/15 Tony MENDEZ Present Risk Factors Results and Location in Medical Record [x] 69 year-old Female H&P p1 09/15 Tony MENDEZ [x] HTN H&P p1 09/15 Tony MENDEZ [x] HLD H&P p1 09/15 Tony MENDEZ [x] Sepsis H&P p4 09/15 Tony MENDEZ Present Treatments Results and Location in Medical Record [x] Aspirin 81 mg oral NOV 01 [x] Lipitor 20 mg oral NOV 01 [x] IVF NS 1L NOV 01 [x] Telemetry Order 09/16 CDS/[employer] Signature: Nicole Pride Nainprestonjimy Phone #: [phone] Date/Time: 09/23/20412 This is a permanent part of the Medical Record [facility]
== END 2020-09-20 14:00 | disposition home or self-care (01) | DRG 871 ==
LOC: OBSVTOIN 21:45 → 2SE 21:45
PROVIDERS: ADMIT Internal Medicine; ATTEND Internal Medicine
PROC: XW13325 Transfusion of Convalescent Plasma (Nonautologous) into Peripheral Vein, Percutaneous Approach, New Technology Group 5 (ICD-10-PCS; principal; 2020-09-16)
PROC: XW033E5 Introduction of Remdesivir Anti-infective into Peripheral Vein, Percutaneous Approach, New Technology Group 5 (ICD-10-PCS; 2020-09-16)
PROC: 8E0ZXY6 Isolation (ICD-10-PCS; 2020-09-16)
DX: A41.89 Other specified sepsis (principal); U07.1 COVID-19; E87.1 Hypo-osmolality and hyponatremia; I47.1 Supraventricular tachycardia; N39.0 Urinary tract infection, site not specified; I24.8 Other forms of acute ischemic heart disease; E86.0 Dehydration; E87.6 Hypokalemia; E83.42 Hypomagnesemia; I10 Essential (primary) hypertension; E78.5 Hyperlipidemia, unspecified; H91.93 Unspecified hearing loss, bilateral; Z88.0 Allergy status to penicillin; Z79.899 Other long term (current) drug therapy; Z79.82 Long term (current) use of aspirin; Z90.49 Acquired absence of other specified parts of digestive tract
CPT/HCPCS: 36415; 36430; 71045; 74018; 80048; 80053; 80202; 81001; 82436; 82728; 83615; 83735; 83930; 83935; 84100; 84133; 84300; 84484; 85025; 85379; 85652; 86140; 86850; 86900; 86901; 87086; 87449; 87633; 87635; 87899; J0360; J0696; J1650; J2405; J2550; J3370; J3475; J3490; J7050; P9017; U0003; U0005

== ENCOUNTER 2020-10-01 19:55 | Observation (INO) | payer BC ==
[2020-10-01 20:51] LABS: #Eosinphils 0.1 thou/uL (0.0-0.7); #Lymphocytes 1.4 thou/uL (1.20-3.40); #Monocytes 0.5 thou/uL (0.11-0.59); #Neutrophils 7.2 thou/uL (1.40-6.50); %Basophils 0.2 % (0.0-1.0); %Eosinophils 1.5 % (0.0-10.0); %Lymphocytes 15.1 % (21.0-51.0); %Monocytes 5.8 % (0.0-10.0); %Neutrophils 77.5 % (42.0-75.0); Hemoglobin 12.9 g/dL (12.0-16.0); Mean Corpuscular HGB CONC 32.8 g/dL (32.0-36.0); Mean Corpuscular Hemoglobin 28.6 pg (27.0-31.0); Mean Corpuscular Volume 87.3 fL (78.0-98.0); Mean Platelet Volume 6.6 fL (7.4-10.4); Platelet Count 587 thou/uL (130-400); RBC Distribution Width 11.7 % (11.5-14.5); White Blood Cell (WBC) Count 9.3 thou/uL (4.8-10.8)
[2020-10-01 20:59] LABS: Bacteria/HPF None Seen HPF (None Seen); Bilirubin Negative (Negative); Blood, Urine Negative (Negative); Clarity Clear (Clear); Glucose, Urine (Dipstick) Normal (Negative); Ketone, Urine Negative (Negative); Leukocyte Negative Leu/uL (Negative); Nitrite Negative (Negative); Protein, Urine (Dipstick) 50 mg/dL (Neg-Trace); Specific Gravity, Urine 1.021 (1.002-1.036); Squamous Epithelial 0-3 HPF (0-3); Urobilinogen Normal mg/dL (Less than 2)
[2020-10-01 21:13] LABS: ALT (SGPT) 31 U/L (8-55); AST (SGOT) 20 U/L (5-34); Albumin 3.8 g/dL (3.4-4.8); Alkaline Phosphatase 91 U/L (40-110); Anion Gap 16 mmol/L (10-20); BUN (Urea Nitrogen) 13 mg/dL (9.8-20.1); Bilirubin, Total 0.5 mg/dL (0.2-1.2); Calc. Creatinine Clearance 0 mL/min (70-130); Calcium 9.4 mg/dL (7.8-10.44); Carbon Dioxide 24 mmol/L (23-31); Chloride 96 mmol/L (98-107); Globulin 3.9 g/dL (2.4-3.5); Glucose 127 mg/dL (80-115); Potassium 4.1 mmol/L (3.5-5.1); Protein, Total 7.7 g/dL (5.8-8.1); Sodium 132 mmol/L (136-145)
[2020-10-01] MEDS ORDERED: Haloperidol Lactate 5 MG/ML VIAL SLOW IVP SCH (21:15)
[2020-10-01] MEDS ORDERED: Lorazepam 2 MG/ML VIAL ONE (21:19)
--- NOTE | 2020-10-01 21:39 | CT ---
EXAM: CT brain without contrast HISTORY: Altered mental status COMPARISON: None TECHNIQUE: Multiple contiguous axial images were obtained and a CT of the brain without contrast. FINDINGS: The brain is normal in morphology and attenuation without focal lesions or confluent areas of infarction. There is no evidence of hydrocephalus, intracranial hemorrhage, or extra-axial fluid collection. The calvarium and overlying soft tissues are unremarkable. The visualized paranasal sinuses are well aerated. The patient has had prior left mastoid surgery. The bony ossicles are absent on the left. There is opacification of the right mastoid air cells and middle ear. IMPRESSION: No evidence of acute intracranial abnormality
[2020-10-02] MEDS ORDERED: Acetaminophen 650 MG Suppository PR PRN (00:50)
[2020-10-02] MEDS ORDERED: Acetaminophen 325 MG TAB PO PRN (00:50)
[2020-10-02 01:26] VITALS: BMI 22.9
--- NOTE | 2020-10-02 01:51 | PDOC.HHP ---
Hospitalist HPI History of Present Illness: ADMISSION DATE: 10/02/2020 TIME OF ASSESSMENT: 0100 PRIMARY CARE PHYSICIAN: Dr. Srinivasan CHIEF COMPLAINT: Altered mental status HPI: This is a 69-year-old woman who was brought into the emergency department due to confused speech that started earlier today. According to family member the patient was very repetitive with her speech earlier today and it has persisted throughout the day. She was not noted to have any slurred speech, facial or extremity weakness and did not experience any gait disturbances. She was recently admitted to the hospital from 09/15/2020 to 09/20/2020 during which time she was treated for sepsis secondary to UTI and also found to be positive f or Covid during her hospitalization. She was discharged on a 1 week course of Omnicef. Following discharge home the patient was seen by her primary care physician who advised that she quarantine 1 week following discharge. With regards to Covid she remained asymptomatic and therefore no further i nterventions were indicated. She remained on room air during her hospitalization. Patient was doing well until today. She did not complain of any pain or discomfort. Has not had any fevers chills or sweats. No nausea or vomiting and has not had any abdominal pain. Unknown if she has been exper iencing any urinary symptoms. ROS: Unable to obtain as patient was sedated in the ED with Haldol. ED COURSE: EKG done in the ER showed normal sinus rhythm with a heart rate of 91. No ST changes or T wave abnormalities. CT head was done showing no evidence of acute intracranial abnormality. Urinalysis notable for 50 protein, 4-6 red blood cells and 4-6 white blood cells. No bacteria. Negative for leukocytes and nitrites. In the ED she was given 1 L of normal saline. Due to agitation she received 1 mg of Ativan as well as 2 mg of Haldol. Allergies/Adverse Reactions: Allergy/AdvReac Type Severity Reaction Status Date / Time Penicillins Allergy Verified 10/02/20 01:24 Home Medications: Medication Instructions Recorded Confirmed Type Atorvastatin Calcium [Lipitor] 20 mg PO DAILY 09/15/20 09/15/20 History Hydrochlorothiazide 25 mg PO DAILY 09/15/20 09/15/20 History Aspirin [Ecotrin Low Strength] 81 mg PO DAILY tab 09/20/20 Rx Cefdinir [Omnicef] 300 mg PO BID #7 cap 09/20/20 Rx Metoprolol Tartrate [Lopressor] 25 mg PO BID #60 tab 09/20/20 Rx Past History: PAST MEDICAL HISTORY: 1. Hypertension 2. Hyperlipidemia 3. Chronic ear infections 4. Severe hearing loss PAST SURGICAL HISTORY: 1. Cholecystectomy 2. Left ear cholesteatoma SOCIAL HISTORY: Patient lives alone and is fully independent at baseline. No tobacco use or alcohol consumption. FAMILY HISTORY: Noncontributory Hospitalist Exam Vitals: Vital Signs (12 hours) Temp Pulse Resp BP Pulse Ox 10/02/20 01:05 98.7 F 97 16 154/75 H 96 Weight Weight 133 lb 13.129 oz Eye: PERRL ENT: normocephalic atraumatic, no oropharyngeal lesions Neck: supple Heart: RRR, normal peripheral pulses Respiratory: CTAB, no wheezes, no rales, no ronchi, normal chest expansion, no tachypnea Gastrointestinal: soft, non-distended, no guarding Extremities: no edema Skin: normal turgor, no rashes Musculoskeletal: normal tone, normal strength, no muscle wasting Psychiatric: somnolent (s/p ativan and haldol given in ED.) Hospitalist Results Result Diagrams: 10/01/20 20:31 10/01/20 20:31 Lab results: Laboratory Last Values WBC 9.3 thou/uL (4.8-10.8) 10/01/20 20:31 RBC 4.50 mill/uL (4.20-5.40) 10/01/20 20:31 Hgb 12.9 g/dL (12.0-16.0) 10/01/20 20:31 Hct 39.3 % (36.0-47.0) 10/01/20 20:31 MCV 87.3 fL (78.0-98.0) 10/01/20 20:31 MCH 28.6 pg (27.0-31.0) 10/01/20 20:31 MCHC 32.8 g/dL (32.0-36.0) 10/01/20 20:31 RDW 11.7 % (11.5-14.5) 10/01/20 20:31 Plt Count 587 thou/uL (130-400) H 10/01/20 20:31 MPV 6.6 fL (7.4-10.4) L 10/01/20 20:31 Neutrophils % 77.5 % (42.0-75.0) H 10/01/20 20:31 Lymphocytes % 15.1 % (21.0-51.0) L 10/01/20 20: Monocytes % 5.8 % (0.0-10.0) 10/01/20 20: Eosinophils % 1.5 % (0.0-10.0) 10/01/20 20: Basophils % 0.2 % (0.0-1.0) 10/01/20 20:31 Neutrophils # 7.2 thou/uL (1.40-6.50) H 10/01/20 20: Lymphocytes # 1.4 thou/uL (1.20-3.40) 10/01/20 20: Monocytes # 0.5 thou/uL (0.11-0.59) 10/01/20 20: Eosinophils # 0.1 thou/uL (0.0-0.7) 10/01/20 20: Basophils # 0.0 thou/uL (0.0-0.2) 10/01/20 20:31 Sodium 132 mmol/L (136-145) L 10/01/20 20:31 Potassium 4.1 mmol/L (3.5-5.1) 10/01/20 20:31 Chloride 96 mmol/L (98-107) L 10/01/20 20:31 Carbon Dioxide 24 mmol/L (23-31) 10/01/20 20: Anion Gap 16 mmol/L (10-20) 10/01/20 20:31 BUN 13 mg/dL (9.8-20.1) 10/01/20 20:31 Creatinine 0.73 mg/dL (0.6-1.1) 10/01/20 20:31 Estimated GFR (MDRD) 79 10/01/20 20: Glucose 127 mg/dL (80-115) H 10/01/20 20:31 Calcium 9.4 mg/dL (7.8-10.44) 10/01/20 20:31 Total Bilirubin 0.5 mg/dL (0.2-1.2) 10/01/20 20: AST 20 U/L (5-34) 10/01/20 20:31 ALT 31 U/L (8-55) 10/01/20 20: Alkaline Phosphatase 91 U/L (40-110) 10/01/20 20: Troponin I Less than 0.010 ng/mL (< 0.028) 10/01/20 20:31 Serum Total Protein 7.7 g/dL (5.8-8.1) 10/01/20 20: Albumin 3.8 g/dL (3.4-4.8) 10/01/20 20: Globulin 3.9 g/dL (2.4-3.5) H 10/01/20 20: Albumin/Globulin Ratio 1.0 g/dL (1.2-2.2) L 10/01/20 20: TSH 3rd Generation 0.3111 uIU/mL (0.35-4.94) L 10/01/20 20:31 Urine Color Yellow (Yellow) 10/01/20 20:43 Urine Clarity Clear (Clear) 10/01/20 20:43 Urine pH 7.0 (5.0-9.0) 10/01/20 20:43 Ur Specific [place] 1.021 (1.002-1.036) 10/01/20 20:43 Urine Protein 50 mg/dL (Neg-Trace) A 10/01/20 20:43 Urine Glucose (UA) Normal mg/dL (Negative) 10/01/20 20:43 Urine Ketones Negative mg/dL (Negative) 10/01/20 20:43 Urine Blood Negative (Negative) 10/01/20 20:43 Urine Nitrite Negative (Negative) 10/01/20 20:43 Urine Bilirubin Negative (Negative) 10/01/20 20:43 Urine Urobilinogen Normal mg/dL (Less than 2) 10/01/20 20:43 Ur Leukocyte Esterase Negative Randall/uL (Negative) 10/01/20 20:43 Urine RBC 4-6 HPF (0-3) A 10/01/20 20:43 Urine WBC 4-6 HPF (0-3) A 10/01/20 20:43 Ur Squamous Epith Cells 0-3 HPF (0-3) 10/01/20 20:43 Urine Bacteria None Seen HPF (None Seen) 10/01/20 20:43 CT scan - head Status: report reviewed by me Hospitalist H&P A/P (1) Confusion Code(s): R41.0 - DISORIENTATION, UNSPECIFIED Status: Acute (2) COVID-19 virus detected Code(s): U07.1 - COVID-19 Status: Acute (3) Recent urinary tract infection Code(s): Z87.440 - PERSONAL HISTORY OF URINARY (TRACT) INFECTIONS Status: Acute (4) Essential hypertension Code(s): I10 - ESSENTIAL (PRIMARY) HYPERTENSION Status: Chronic (5) Hyperlipidemia Code(s): E78.5 - HYPERLIPIDEMIA, UNSPECIFIED Status: Chronic (6) Chronic ear infection Code(s): H66.90 - OTITIS MEDIA, UNSPECIFIED, UNSPECIFIED EAR Status: Chronic Plan: Patient drowsy due to ativan and haldol given in ED Continue to monitor Keep NPO for now until more alert Gentle hydration Repeat COVID testing Monitor O2 sats Obtain baseline CXR Post void bladder scan to assess for urine retention Resume home medications once verified DVT Prophylaxis with Lovenox CODE STATUS FULL Case discussed with attending who agrees with plan as above.
[2020-10-02 04:52] LABS: CRP (Inflammatory) 1.77 mg/dL (= or < 0.5); Magnesium 1.9 mg/dL (1.6-2.6)
[2020-10-02 04:52] LABS: Anion Gap 12 mmol/L (10-20); BUN (Urea Nitrogen) 11 mg/dL (9.8-20.1); Calc. Creatinine Clearance 91 mL/min (70-130); Calcium 8.5 mg/dL (7.8-10.44); Carbon Dioxide 23 mmol/L (23-31); Chloride 100 mmol/L (98-107); Glucose 95 mg/dL (80-115); Potassium 3.8 mmol/L (3.5-5.1); Sodium 131 mmol/L (136-145)
[2020-10-02 07:03] LABS: Lactic Acid 0.7 mmol/L (0.5-2.2)
[2020-10-02 07:49] LABS: #Eosinphils 0.3 thou/uL (0.0-0.7); #Lymphocytes 1.6 thou/uL (1.20-3.40); #Monocytes 0.6 thou/uL (0.11-0.59); #Neutrophils 5.7 thou/uL (1.40-6.50); %Basophils 0.1 % (0.0-1.0); %Eosinophils 3.1 % (0.0-10.0); %Lymphocytes 19.7 % (21.0-51.0); %Monocytes 6.8 % (0.0-10.0); %Neutrophils 70.3 % (42.0-75.0); Hemoglobin 11.5 g/dL (12.0-16.0); Mean Corpuscular HGB CONC 33.3 g/dL (32.0-36.0); Mean Corpuscular Hemoglobin 29.1 pg (27.0-31.0); Mean Corpuscular Volume 87.6 fL (78.0-98.0); Mean Platelet Volume 6.5 fL (7.4-10.4); Platelet Count 462 thou/uL (130-400); RBC Distribution Width 11.7 % (11.5-14.5); Red Blood Cell (RBC) Count 3.96 mill/uL (4.20-5.40); White Blood Cell (WBC) Count 8.1 thou/uL (4.8-10.8)
[2020-10-02] MEDS ORDERED: Metoprolol Tartrate 25 MG TAB PO SCH (09:00)
[2020-10-02] MEDS ORDERED: FLU VACC QS2020-21(65YR UP)/PF 240 MCG/0.7 ML SYRINGE IM ONE (09:00)
[2020-10-02] MEDS ORDERED: Aspirin 81 mg Enteric Coated Tablet PO SCH (09:00)
[2020-10-02] MEDS ORDERED: Hydrochlorothiazide 25 MG TAB PO SCH (09:00)
[2020-10-02] MEDS ORDERED: Atorvastatin Calcium 20 MG TAB PO SCH (09:00)
--- NOTE | 2020-10-02 09:54 | RAD ---
EXAM: Chest one view: HISTORY: Follow-up Covid pneumonia COMPARISON: 09/16/2020 FINDINGS: Heart size: Within normal limits. Lungs: Minimal increased markings bilaterally but overall improvement from prior exam with improved i nspiration. No evidence for confluent lobar pneumonia, significant pleural effusion, acute edema, or pneumothorax , or other significant acute process. IMPRESSION: No significant acute intrathoracic disease.
[2020-10-02 11:46] LABS: SARS-CoV-2 PCR by NAA Indeterminate (NotDetected)
--- NOTE | 2020-10-02 18:28 | PDOC.DS.DS ---
Provider Date of Admission: 10/01/20 23:14 Date of Discharge: 10/02/20 Admitting Provider: Jori Marti MD Consultations: Infectious Disease Primary Care Physician: Ar Srinivasan MD Course Hospital Course: Female with hypertension and hyperlipidemia presented to the hospital on 10/01 with altered mentation. History was limited due to hearing deficits and language barrier. She received lorazepam along with Haldol in the emergency room for altered mentation. Please refer to the history and physical for further details. The patient was admitted to the hospital with a diagnosis of altered mentation of unclear etiology. Her WBC counts were normal. CRP was 1.7 compared to 21 2 weeks ago. Electrolytes were essentially in normal range except for sodium of 132. Blood culture and urine culture were negative at 24 hours. Patient was evaluated by infectious disease. Per infectious disease patient does not have any obvious infectious pathology. She has been cleared by infectious disease for discharge. Repeat basic metabolic profile after 1 week is recommended primary care physicia n advised to follow. Final diagnosis: Encephalopathy of unclear etiologyresolved. Patient is alert awake oriented x3 at discharge Recent hospitalization for sepsis due to UTI and COVID-19 infection History of supraventricular tachycardia Hypertension Hyperlipidemia Penicillin allergy Hyponatremiahydrochlorothiazide has been discontinued. Resuscitation Status: 10/02/20 00:50 Resuscitation Status Routine Co-Sign Provider: Resuscitation Status: FULL: Full Resuscitation Lab Results: 10/02/20 03:36 10/02/20 03:36 Abnormal Lab Results - Last 48 hrs 10/01/20 20:31: Sodium 132 L, Chloride 96 L, Globulin 3.9 H, Albumin/Globulin Ratio 1.0 L 10/01/20 20:31: TSH 3rd Generation 0.3111 L 10/01/20 20:31: Plt Count 587 H, MPV 6.6 L, Neutrophils % 77.5 H, Lymphocytes % 15.1 L, Neutrophils # 7.2 H 10/01/20 20:43: Urine Protein 50 A, Urine RBC 4-6 A, Urine WBC 4-6 A 10/02/20 01:45: SARS-CoV-2 RNA (ADAM) Indeterminate A 10/02/20 03:35: C-Reactive Protein 1.77 H 10/02/20 03:36: Sodium 131 L, Creatinine 0.55 L 10/02/20 03:36: RBC 3.96 L, Hgb 11.5 L, Hct 34.7 L, Plt Count 462 H, MPV 6.5 L, Lymphocytes % 19.7 L, Monocytes # 0.6 H 10/02/20 03:36: Vitamin B12 Greater than 2000 H 10/02/20 03:36: D-Dimer 0.59 H Microbiology - Entire Visit 10/01/20 20:43 Urine Straight Catheter Urine Culture - Preliminary NO GROWTH AT 12 HOURS 10/01/20 20:31 Venous blood - Left Arm Blood Culture - Preliminary Specimen has been received and culture in progress. No Growth to date. 10/01/20 20:38 Venous blood - Right Arm Blood Culture - Preliminary Specimen has been received and culture in progress. No Growth to date. Vitals: Vital Signs (12 hours) Temp Pulse Resp BP Pulse Ox 10/02/20 15:52 98.3 F 78 18 129/69 98 10/02/20 12:00 97.8 F 67 17 116/66 97 10/02/20 07:14 97.5 F L 81 18 133/74 98 Weight Admit Weight 133 lb 13.12 oz Weight 133 lb 13.129 oz Physical Exam: The patient was seen and examined on the day of discharge. Plan Home Medications: Medication Instructions Recorded Confirmed Type Atorvastatin Calcium [Lipitor] 20 mg PO DAILY 09/15/20 10/02/20 History Aspirin [Ecotrin Low Strength] 81 mg PO DAILY tab 09/20/20 10/02/20 Rx Metoprolol Tartrate [Lopressor] 25 mg PO BID #60 tab 09/20/20 10/02/20 Rx Ciprofloxacin HCL/Dexameth 4 drop EA EAR BID 10/02/20 10/02/20 History [Ciprodex Otic Suspension] Allergies: Penicillins Allergy (Verified 10/02/20 01:24) Referrals: Ar Srinivasan MD [Primary Care Provider] - 3 Days Adonay Cordova MD [Active] - 14 Days Disposition: HOME Quality CORE MEASURES:: N/A
[2020-10-02 20:24] VITALS: BP 146/73; TEMP 97.9
--- NOTE | 2020-10-02 20:30 | CON ---
DATE OF CONSULTATION: 10/02/2020 REASON FOR CONSULT: Possible sepsis. HISTORY OF PRESENT ILLNESS: A 69-year-old who was recently admitted with history of hypertension, hyperlipidemia, and abdominal discomfort and chills. She had a positive COVID test and had a normal urinalysis, at least the second one. The first one was only 0 to 3 wbc's. Her urine cultures are all negative, so I do not know why she was diagnosed with the urinary tract infection. So probably the first admission was for COVID related illness. Her chest x-ray was fairly normal and she did not have any issues with O2 saturations. So she went home and remained on room air through the hospital stay and now she comes back brought by family members, presumably because she had developed altered mental state. In the description of the emergency room visit, she is described as being very confused on exam. A nurse who spoke Green[place]ic attempted to interpret, but looks like the family or the patient could not understand what they are saying, particularly the patient. BP 164/70, heart rate 105, respirations 20, temperature 98, O2 saturation 97% room air. Lungs are clear. Heart exam shows sinus tach. Abdomen soft, not tender or distended. LABORATORY DATA: White cell count was 9.3 with platelets 587, 77% neutrophils. The second draw was 8.1, hemoglobin 11.5, platelets 462, 70% neutrophils. Chemistry: Liver profile normal. Albumin 3.8, globulin 3.9. CRP was 1.77, which is markedly improved compared with the one from the first admission. Sodium was 132 and 131. TSH 0.3. Urinalysis this time was 4 to 6 WBCs. SARS-CoV2 PCR was indeterminate. She has had 4 sets of blood cultures between the first and second admission, all thus far negative. The first one was final negative at 5 days. Urine culture, no growth at 12 hours. Chest x-ray was repeated and felt to be normal. Right now Ms. Burch is lying in bed. She appears to be in no distress. I tried to communicate with her and it was obvious that she had severe hearing impairment. When she was finally able to understand what I was saying, she seemed to be oriented x3 and responded to my questions properly. Follow commands and all that. Still was difficult to communicate, but most likely due to hearing impairment. She states that she goes to have her earwax removed every 3 months. Denies any headaches. No shortness of breath cough. No abdominal pain or diarrhea. No genitourinary symptoms. No joint symptoms. MEDICAL HISTORY: Hyperlipidemia, hypertension, recent COVID, SVT, earwax plugs with periodic removal need. ALLERGIES: PENICILLIN WITH RASH. MEDICATIONS: At home 1. Metoprolol. 2. Cefdinir. Here she is receiving 1. Hydrochlorothiazide. 2. Metoprolol. FAMILY HISTORY: Noncontributory. PHYSICAL EXAMINATION: VITAL SIGNS: Afebrile here in the hospital, BP 120/60, heart rate 78, respirations 18, and O2 saturation 98%. SKIN: Normal. Peripheral IV access. She has no urinary retention. No lymphadenopathy. HEENT: Remarkable for completely obstructed external ear canals by wax plugs, right and left side, but no other changes. NECK: Supple. LUNGS: Symmetric, clear breath sounds. HEART: S1, S2, regular rate, no S3 or S4. ABDOMEN: Soft, not distended or tender. No ascites. No bladder distention. EXTREMITIES: No joint inflammatory activity. Moves extremities equally. Plantar responses are flexor. No clonus. NEUROLOGIC: She is oriented x3, follows commands. LABORATORY DATA: Lab data has been discussed above. ASSESSMENT: Recent COVID-19 with mild manifestations and now presumably brought because of altered mental state, which in my opinion is due to severe hearing impairment due to bilateral extensive earwax plugs. So she just needs to have those removed and she can be discharged home any time off the antimicrobial therapy. She will follow up in the outpatient setting. After the wax was removed in the L ear she still had marked reduction in hearing but communication was easier and then she stated that her ENT MD had told her 'she should not have hearing aids because it would cause infection' which does not make sense to me. I would consider d/c planning with ENT referral Job ID: [id number] [facility]
== END 2020-10-02 21:15 | disposition home or self-care (01) ==
LOC: ERS 19:55 → T4-A 23:14
PROVIDERS: ADMIT Internal Medicine; ATTEND Internal Medicine
DX: G93.40 Encephalopathy, unspecified (principal); I47.1 Supraventricular tachycardia; I10 Essential (primary) hypertension; E78.5 Hyperlipidemia, unspecified; E87.1 Hypo-osmolality and hyponatremia; H61.23 Impacted cerumen, bilateral; H66.90 Otitis media, unspecified, unspecified ear; Z87.440 Personal history of urinary (tract) infections; Z79.82 Long term (current) use of aspirin; Z79.899 Other long term (current) drug therapy; Z88.0 Allergy status to penicillin; Z20.822 Contact with and (suspected) exposure to COVID-19
CPT/HCPCS: 36415; 51701; 51798; 70450; 71045; 80048; 80053; 81003; 81015; 82140; 82607; 83605; 83735; 84443; 84484; 85025; 85379; 86140; 87040; 87086; 87635; 93005; 96374; G0378; J1630; J2060; U0003; U0005

== ENCOUNTER 2024-07-25 13:26 | Outpatient (CLI) | payer BC, MEDICARE | END 2024-07-25 13:27 | disposition home or self-care (01) | LOC: BICMAMMO 13:26 | PROVIDERS: ATTEND Nurse Practitioner Family | DX: Z13.820 Encounter for screening for osteoporosis (principal); Z78.0 Asymptomatic menopausal state; M85.89 Other specified disorders of bone density and structure, multiple sites | CPT/HCPCS: 77080 ==